=== PATIENT | female | born 1945 | race Caucasian/White ===

== ENCOUNTER 2017-05-03 13:07 | Emergency (ER) | payer MEDICARE, OTHER ==
[~2017-05-03 13:07] MED LIST: ASPI325T PO; CHOL4POW PO; CLOP75 PO; COUM3TAB PO; COUM5TAB PO; EZET10 PO; LASI20TA PO; LEVO.1 PO; LIPI80TA16 PO; LORT5TAB PO; LOTR5CAP3 PO; METF-324 PO; NIAS10004 PO; PIOG45 PO; TOPR100T15 PO
[2017-05-03] MEDS ORDERED: AMIODARONE HCL 150 MG/3 ML VIAL IV ONE (13:08)
[2017-05-03] MEDS ORDERED: EPINEPHrine HCL (1:1000) 30 MG/30 ML VIAL IV ONE (13:08)
[2017-05-03] MEDS ORDERED: CALCIUM CHLORIDE 10% SOLN 1 GRAM/10 ML SYR IV ONE (13:08)
[2017-05-03] MEDS ORDERED: LIDOCAINE/D5W 2000 MG/500 ML 500 ML IV ONE (13:08)
[2017-05-03] MEDS ORDERED: LIDOCAINE HCL 2% 100 MG/5 ML SYRINGE IV PUSH ONE (13:08)
[2017-05-03] MEDS ORDERED: NOREPINEPHRINE 4 MG/4 ML AMP IV ONE (13:08)
[2017-05-03] MEDS ORDERED: SODIUM BICARBONATE 8.4% INJ 50 MEQ/50 ML SYR IV ONE (13:08)
[2017-05-03] MEDS ORDERED: EPINEPHrine HCL (1:10,000) 1 MG/10 ML SYRINGE IV ONE (13:08)
[2017-05-03 13:14] VITALS: BP 103/54; PULSE 65; RESP 15; O2SAT 98
[2017-05-03] MEDS ORDERED: HEPARIN SODIUM - IV 10,000 UNITS/10 ML VIAL IV STA (13:18)
[2017-05-03] MEDS ORDERED: SODIUM CHLOR 0.9% 1000 ML INJ 1,000 ML IV ONE (13:18)
[2017-05-03] MEDS ORDERED: ASPIRIN 81 MG CHEW TAB PO STA (13:18)
[2017-05-03] MEDS ORDERED: NITROGLYCERIN 0.4 MG SL 25 TABS/BTL SL STA (13:18)
[2017-05-03 13:24] VITALS: O2SAT 98
[2017-05-03] MEDS ORDERED: SODIUM CHLORIDE 0.9% FLUSH 10 ML FLUSH IVF PRN (13:30)
[2017-05-03] MEDS ORDERED: NITROGLYCERIN-D5W 50 MG/250 ML 250 ML IV PRN (13:30)
[2017-05-03] MEDS ORDERED: IOHEXOL 350 MG/ML 50 ML BTL (for Cath Lab) OTHER ONE (13:30)
--- NOTE | 2017-05-03 13:31 | PD ---
HPI Chief Complaint: Cardiac Complaint Time Seen by Provider: 13:16 Travel History International Travel<30 days: No Contact w/Intl Traveler<30days: No Traveled to known affect area: No History of Present Illness HPI This is a 71-year-old female who presents to the emergency Department with onset of back pain that started yesterday between her shoulder blades escalating today to the point where she's been vomiting and nauseous, severe, associated with some shortness of breath worse in the past several hours. The patient reports this feels just like when she's had myocardial infarction in the past. The patient has a history of one quadruple and 1 trouble bypass and has had a stent since then. She recently moved to the area and doesn't have a market analysis director here. EKGs with EMS for concerning so she was brought in as a cardiac alert. She was given aspirin and 2 nitroglycerin with EMS. PFSH Past Medical History High Cholesterol: Yes Diabetes: Yes Diminished Hearing: No Hypertension: Yes Myocardial Infarction: Yes Past Surgical History Cholecystectomy: Yes Coronary Stent: Yes Tonsillectomy: Yes Social History Alcohol Use: No Tobacco Use: No Substance Use: No Allergies-Medications (Allergen,Severity, Reaction): Coded Allergies: No Known Allergies (Verified , 05/03/17) Reported Meds & Prescriptions Reported Meds & Active Scripts Active Lortab 5/500 (Acetaminophen/Hydrocodone Bitart) 5 Mg/500 Mg Tab 1 Tab PO Q4HPRN FOR PAIN Reported Questran Light (Cholestyramine Resin) 4 Gm Pow 4 Gm PO DAILY Glucophage (Metformin HCl) 1,000 Mg Tab 1,000 Mg PO BID Aspirin 325 Mg Tab 325 Mg PO DAILY Zetia (Ezetimibe) 10 Mg Tab 10 Mg PO DAILY Lotrel 5/20 (Amlodipine Besylate-Benazepril 5MG/20MG) 5 - Cap 1 Cap PO DAILY Lasix (Furosemide) 20 Mg Tab 20 Mg PO DAILY Plavix (Clopidogrel Bisulfate) 75 Mg Tab 75 Mg PO DAILY Niaspan Er (Niacin) 1,000 Er Tab 1,000 Mg PO DAILY Actos (Pioglitazone HCl) 45 Mg Tab 45 Mg PO DAILY Lipitor (Atorvastatin Calcium) 80 Mg Tab 80 Mg PO DAILY Toprol Xl (Metoprolol Succinate) 100 Mg Tab 100 Mg PO DAILY Coumadin (Warfarin Sodium) 5 Mg Tab 5 Mg PO DAILY Coumadin (Warfarin Sodium) 3 Mg Tab 3 Mg PO DAILY Synthroid (Levothyroxine Sodium) 100 Mcg Tab 100 Mcg PO DAILY Review of Systems Except as stated in HPI: all other systems reviewed are Neg Physical Exam Narrative GENERAL:Pale, uncomfortable appearing SKIN: Focused skin assessment warm and dry. HEAD: Atraumatic. Normocephalic. EYES: Pupils equal and round. No injection or drainage. ENT: Moist mucous membranes NECK: Trachea midline. CARDIOVASCULAR: Regular rate and rhythm. No murmur appreciated. RESPIRATORY: Clear to auscultation. Breath sounds equal bilaterally. GASTROINTESTINAL: Abdomen soft, non-tender, nondistended. MUSCULOSKELETAL: No obvious deformities. NEUROLOGICAL: Awake and alert. No obvious cranial nerve deficits. Moving all extremities. PSYCHIATRIC: Appropriate mood and affect; insight and judgment normal. Data Data Last Documented VS Vital Signs Date Time Temp Pulse Resp B/P (MAP) Pulse Ox O2 Delivery O2 Flow Rate FiO2 05/03/17 13:24 98 4.00 05/03/17 13:24 Nasal Cannula 05/03/17 13:23 (70) 05/03/17 13:14 65 15 Orders Orders Troponin I (05/03/17 13:18) Ckmb (Isoenzyme) Profile (05/03/17 13:18) Complete Blood Count With Diff (05/03/17 13:18) I-Stat Profile (05/03/17 13:18) I-Stat Creatinine (05/03/17 13:18) Calcium (05/03/17 13:18) Magnesium (Mg) (05/03/17 13:18) Prothrombin Time / Inr (Pt) (05/03/17 13:18) Act Partial Throm Time (Ptt) (05/03/17 13:18) B-Type Natriuretic Peptide (05/03/17 13:18) Chest, Single Ap (05/03/17 13:18) Electrocardiogram (05/03/17 13:18) Oxygen Administration (05/03/17 13:18) Iv Access Insert/Monitor (05/03/17 13:18) Oximetry (05/03/17 13:18) Sodium Chlor 0.9% 1000 Ml Inj (Ns 1000 M (05/03/17 13:18) Sodium Chloride 0.9% Flush (Ns Flush) (05/03/17 13:30) Aspirin Chew (Aspirin Chew) (05/03/17 13:18) Nitroglycerin Sl (Nitrostat Sl) (05/03/17 13:18) Nitroglycerin-D5w 50 Mg/250 Ml (Nitrogly (05/03/17 13:30) Heparin Inj (Heparin Inj) (05/03/17 13:18) Admit Order (Ed Use Only) (05/03/17 13:21) Cardiac Catheterization (05/03/17 ) MDM Medical Decision Making Medical Screen Exam Complete: Yes Emergency Medical Condition: Yes Interpretation(s) No tachycardia, normotensive EKG: Normal sinus rhythm, ST elevation greater than 1 mm in lead 3, at 1 mm in aVF, ST depressions in 1 and aVL as well as V5 and V6 Differential Diagnosis STEMI, nSTEMI, unstable angina, pulmonary embolism, aortic dissection Narrative Course This is a 71-year-old female who has a history of extensive coronary artery disease who presents to the emergency department with back pain that is typical of her myocardial infarctions in the past. EKG demonstrates [address] elevation in leads 3 and aVF with reciprocal changes concerning for an inferior myocardial infarction. She does have Q waves in those leads of these may be old findings but we don't have an EKG to compare to. Patient has a very good story for myocardial infarction. STEMI was called and the patient was transferred to the [facility]. Critical Care Narrative Aggregate critical care time was 35 minutes. Time to perform other separately billable procedures was not included in the critical care time. My time did not include minutes spent treating any other patients simultaneously or on activities that did not directly contribute to the patient's treatment. The services I provided to this patient were to treat and/or prevent clinically significant deterioration that could result in: disability, I provided critical care services requiring my management, as noted below: Chart data review, documentation time, medication orders and management, vital sign assessments/reviewing monitor data, ordering and reviewing lab tests, ordering and interpreting/reviewing x-rays and diagnostic studies, care of the patient and discussion of the patient with the admitting physicians. Physician Communication Physician Communication Discussed with Dr. Kearns Diagnosis Primary Impression: STEMI (ST elevation myocardial infarction) Qualified Codes: I21.3 - ST elevation (STEMI) myocardial infarction of unspecified site Admitting Information Admitting Physician Requests: Lorin David MD May 03, 2017 13:31
--- NOTE | 2017-05-03 13:37 | RADRPT ---
EXAM DATE/TIME: 05/03/2017 13:19 [facility] COMPARISON: No previous studies available for comparison. INDICATIONS : Stemi Alert. MEDICAL HISTORY : Hypertension. Diabetes mellitus type II. SURGICAL HISTORY : CABG. ENCOUNTER: Initial ACUITY: 1 day PAIN SCORE: 10/10 LOCATION: Bilateral chest FINDINGS: Underinflated AP view of the chest demonstrates a normal-sized cardiac silhouette with calcification of the aorta. Median sternotomy wires are present along with clips in the mediastinum. Lungs are unde rinflated with atelectasis at the lung bases. No effusion, consolidation, or pneumothorax is identifi ed. Bones demonstrate no acute finding. CONCLUSION: Underinflated examination with mild atelectasis at the lung bases. Otherwise, no acute finding is aimee ntified in this patient post CABG. Manas Terrazas MD on May 03, 2017 at 13:34 Board Certified Radiologist. This report was verified electronically.
[2017-05-03] MEDS ORDERED: MIDAZOLAM HCL 2 MG/2 ML VIAL ONE (13:45)
[2017-05-03 13:49] LABS: I-STAT POTASSIUM 6.1 MMOL/L (3.5-4.9)
[2017-05-03 13:50] LABS: AUTOMATED NEUTROPHIL # 13.2 TH/MM3 (1.8-7.7); BASOPHIL % 0.2 % (0.0-2.0); HEMATOCRIT 30.4 % (35.0-46.0); HEMO FLAGS DIFF FINAL; LYMPH % 7.6 % (9.0-44.0); LYMPHOCYTE # 1.1 TH/MM3 (1.0-4.8); MEAN CELL VOLUME 85.4 FL (80.0-100.0); MEAN CORPUSCULAR HEMOGLOBIN 26.4 PG (27.0-34.0); MEAN CORPUSCULAR HGB CONC 30.9 % (32.0-36.0); MONO % 4.3 % (0.0-8.0); NEUT % 87.9 % (16.0-70.0); PLATELET COUNT 101 TH/MM3 (150-450); RED BLOOD COUNT 3.56 MIL/MM3 (4.00-5.30); RED CELL DISTRIBUTION WIDTH 18.2 % (11.6-17.2)
[2017-05-03] MEDS ORDERED: NALOXONE HCL 0.4 MG/ML AMP ONE (13:58)
[2017-05-03 14:01] LABS: APTT (PATIENT) 35.7 SEC (24.3-30.1); INTERNATIONAL NORMALIZED RATIO 2.6 RATIO; PROTHROMBIN TIME - PATIENT 30.5 SEC (9.8-11.6)
[2017-05-03 14:11] LABS: MAGNESIUM 2.5 MG/DL (1.5-2.5)
[2017-05-03 14:40] VITALS: O2SAT 90
--- NOTE | 2017-05-03 15:01 | CATHPROC ---
Patient Name: BART DILLON Study #: [id number] Initial MD: Anabell Morales Date of : 1945 Study Date: 05/03/2017 Cardiac Catheterization Report 05/04/2017 11:03:13 AM Financial #: [id number] 1 of 10 Patient Name: BART DILLON Study #: [id number] Initial MD: Anabell Morales Date of : 1945 Study Date: 05/03/2017 Entire Case Report Patient Information Patient Name BART DILLON Date of 1945 Age 71 years Financial # [id number] Gender F AlternateID Lab Number 4 Room Number Height (in) 66.0 Height (cm) 167.6 BSA 1.74 Weight (lbs) 143.0 Weight (kg) 65.0 Patient Address/Phone Number Home Address [facility] Home Phone Number [address] [place] [address] Study Information Study Number Admission Scheduled Start Study Start [id number] May 03 2017 1:07PM 05/03/2017 May 03 2017 1:26PM [place] Service Cardiac Catheterization Admit Source Facility Department Emergency department [facility] Physician and Clinical Staff Initial Anabell Rapp Hypercil Core Transformer Assembler Otf Hopkins,RN Hypercil Core Transformer Assembler Shadia Mccormack BSRN Other cathlab, cathlab Other Anesthesia, HYDRATOR Other Nara Clark,SHAI Recorder Bart Sanchez,MARKETING TEAM LEAD TECH2 Scrub Humberto Boudreaux RCIS(BS) Procedures Performed Procedure Location (Site) Vessel Name Coronary Angiograms RCA Right Coronary Coronary Angiograms SVG-RCA Right Coronary Coronary Angiograms Gft. Stump 1 SVG Graft Pacemaker Temp Fem Vein (right) Femoral Vein 05/04/2017 11:03:13 AM Financial #: [id number] 2 of 10 Patient Name: BART DILLON Study #: [id number] Initial MD: Anabell Morales Date of : 1945 Study Date: 05/03/2017 Equipment Time Radio Tower Technician Description Size Mfg Part Number Used/Scraped [id number] 15:04 LAROSE HURTADO PACING CATHETER J CURVE FR 5 Used *[id number] TRANSDUCER, TRUWAVE [id number] 13:43 LAROSE HURTADO * Used W/STOCKCOCK *[id number] 534-548T *[id number] 534-520T *[id number] 534-521T *[id number] 13:43 MEDLINE INDUSTRIES PACK, CCL CUSTOM * Used *[id number] 13:43 MEDLINE PACER PEN, SKIN DUAL W/ RULER * Used *[id number] 14:21 Crowdmark MEDICAL SHEATH, FR6.5 PRELUDE 11CM FR 6.5 038ACT Used *6948009 [id number] 13:43 [employer] MEDICAL WIRE, 3MMJ .035 180CM 180CM Used *[id number] PROBE COVER, STERILE [id number] 13:43 [employer]ient MEDICAL * Used ULTRASOUND W/ GEL *[id number] 13:43 NAMIC MANIFOLD, 4 PORT * Used *[id number] [id number] 13:43 NAMIC TUBING, HIGH PRESSURE 48" 48" Used *[id number] 13:43 NYCOMED OMNIPAQUE, 350 MG, 150ML 150ML [id number] Used [id number] 13:43 AVILES MEDICAL BLANKET,WARM AIR CCL * Used *[id number] [id number] 13:43 TERUMO MEDICAL SHEATH, FR5 TERUMO (10CM) FR 5 Used *[id number] Insurance Information Insurance Payor Medicare Third Republican Third Republican Number MEDICARE A B MCRAB History: Current Medications Medication Dosage/Unit Route Frequency Last Date/Time Taken Synthroid LISINOPRIL CARVEDILOL Statins (any) Glypizide Coumadin 05/04/2017 11:03:13 AM Financial #: [id number] Patient Name: BART DILLON Study #: [id number] Initial MD: Anabell Morales Date of : 1945 Study Date: 05/03/2017 History: Stress Tests Stress or Imaging Studies Performed No Labs Hgb (g/dl) Hct (%) RBC (MIL/MM3) WBC (l/cumm) Platelets (thousands) 11.60-17.00 35.00-51.00 4.00-5.90 4.00-11.00 150.00-450.00 10.5 31 3.5 15 101 Glucose (mg/dl) Creatinine (mg/dl) 74.00-106.00 0.50-1.30 292 2.6 Na (meq/l) K (meq/l) Cl (meq/l) 136.00-145.00 3.50-5.10 98.00-107.00 137 6.1 105 Medication Medication Total Dose (Bolus/Oral) Medication Total Dosage/Unit 1% XYLOCAINE 20 mL AMIODARONE 300 mg CALCIUM CHLORIDE 1 g EPINEPHRINE 08/999 3 mg FENTANYL 50 mcg NARCAN 0.4 mg OXYGEN 2 l/min ROMAZICON IV 0.2 mg VERSED 2 mg 05/04/2017 11:03:13 AM Financial #: [id number] Patient Name: BART DILLON Study #: [id number] Initial MD: Anabell Morales Date of : 1945 Study Date: 017 Medications (Bolus/Oral) Medication Time Given Dosage/Unit Administered By Reason OXYGEN 05/03/2017 1:41:15 PM 2 l/min cathlab, cathlab Patient arrived on 2 l/min OXYGEN given by cathlab, cathlab via Nasal. Ordered by Anabell Morales. VERSED 05/03/2017 1:51:31 PM 1 mg Otf Hopkins 1 mg VERSED given in lab by Otf Hopkins RN in Right Hand via Peripheral IV. Ordered by Ebonie Morales. FENTANYL 05/03/2017 1:52:42 PM 25 mcg Otf Hopkins 25 mcg FENTANYL given in lab by Otf Hopkins RN in Right Hand via Peripheral IV. Ordered by Anabell Howell. 1% XYLOCAINE 05/03/2017 1:52:52 PM 20 mL Anabell Morales 20 mL 1% XYLOCAINE given in lab by Anabell Morales in Right Groin via Subcutaneous. Ordered by Anabell Howell. VERSED 05/03/2017 1:54:04 PM 1 mg Otf Hopkins 1 mg VERSED given in lab by Otf Hopkins RN in Right Hand via Peripheral IV. Ordered by Ebonie Morales. FENTANYL 05/03/2017 1:55:43 PM 25 mcg Gerrytendl, Shadia 25 mcg FENTANYL given in lab by Shadia Mccormack BSRN via Peripheral IV. Ordered by Anabell Morales. NARCAN 05/03/2017 1:59:18 PM 0.4 mg Rittendl, Shadia 0.4 mg NARCAN given in lab by Shadia Mccormack BSRN via Peripheral IV. Ordered by Anabell Morales. ROMAZICON IV 05/03/2017 1:59:34 PM 0.2 mg Rittendl, Shadia 0.2 mg ROMAZICON IV given in lab by Shadia Mccormack BSRN via Peripheral IV. Ordered by Aranza Morales. EPINEPHRINE 08/999 05/03/2017 2:04:06 PM 1 mg Otf Hopkins 1 mg EPINEPHRINE 08/999 given in lab by Otf Hopkins RN in Right Hand via Peripheral IV. Ordered b y Anabell Morales. EPINEPHRINE 08/999 05/03/2017 2:06:52 PM 1 mg Otf Hopkins 1 mg EPINEPHRINE 08/999 given in lab by Otf Hopkins RN in Right Hand via Peripheral IV. Ordered b y Anabell Morales. EPINEPHRINE 08/999 05/03/2017 2:18:31 PM 1 mg Otf Hopkins 1 mg EPINEPHRINE 08/999 given in lab by Otf Hopkins RN in Right Hand via Peripheral IV. Ordered b y Anabell Morales. AMIODARONE 05/03/2017 2:22:02 PM 300 mg Otf Hopkins 300 mg AMIODARONE given in lab by Otf Hopkins RN in Right Hand via Peripheral IV. Ordered by Anabell Chau. CALCIUM CHLORIDE 05/03/2017 2:23:02 PM 1 g Otf Hopkins 1 g CALCIUM CHLORIDE given in lab by Otf Hopkins RN via Peripheral IV. Ordered by Anabell Morales . 05/04/2017 11:03:13 AM Financial #: [id number] 5 of 10 Patient Name: BART DILLON Study #: [id number] Initial MD: Anabell Morales Date of : 1945 Study Date: 2016 Medication (Drip) Medication Time Given Dosage/Unit Concentration/Unit Diluent (ml) Solution EPINEPHRINE DRIP 05/03/2017 2:25:39 PM 10 mcg/min 4 mg 250 NaCl .9 10 mcg/min EPINEPHRINE DRIP given in lab by Anesthesia, HYDRATOR in Right Groin via Peripheral IV. Pump/D rip Flow = 37.5 ml/hr using NaCl .9 with a concentration of 4 mg in 250 ml. Ordered by Anabell Morales. IV Solutions 05/03/2017 1:41:47 PM 0 mL (IV) 500 NaCl .9 IV Solutions given in lab by Otf Hopkins RN in Right Hand via Peripheral IV. Pump/Drip Flow = 20 ml/hr using NaCl .9. Ordered by Anabell Morales. SODIUM BICARBONATE 05/03/2017 2:00:54 PM 50 meq 50 meq SODIUM BICARBONATE given in lab by Anesthesia, HYDRATOR in Right Hand via Peripheral IV. Ordered b y Anabell Morales. SODIUM BICARBONATE 05/03/2017 2:23:21 PM 50 meq 50 meq SODIUM BICARBONATE given in lab by Otf Hopkins RN in Right Hand via Peripheral IV. Ordered by Anabell Morales. Initial Case Assessment Cardiovascular HR NIBP 65 111/59 Edema Present Skin color Skin None Normal Warm Dry Circulatory - Right Pulses Dorsalis Pedis Femoral d 1 Scale (0,1,2,3,4,d) Circulatory - Left Pulses Dorsalis Pedis Femoral 1 Scale (0,1,2,3,4,d) Neurological State Oriented to time-place- Alert Moves all extremities person Respiration - General Respiration Rate SpO2 (%) O2 (lpm) (B/min) 11 99 2 05/04/2017 11:03:13 AM Financial #: [id number] Patient Name: BART DILLON Study #: [id number] Initial MD: Anabell Morales Date of : 1945 Study Date: 7 Vitals Summary Pain Time HR NIBP SpO2 Resp Temp EtCO2 Apnea Praneeth Tadeo Comment Level 13:37:23 61 111/59 99.0 11 10 0 2 13:42:14 61 120/64 98.0 17 10 0 2 13:47:15 111 122/65 99.0 15 10 0 2 13:52:16 66 121/67 100.0 32 14:01:25 87 133/30 100.0 10 0 2 14:03:44 99 114/88 92.0 10 0 2 14:06:01 101 97/77 84.0 10 0 2 Praneeth Score Summary Time Activity Resp Circ LOC Color Total Score 13:37:23 2 2 2 2 2 10 13:42:14 2 2 2 2 2 10 13:47:15 2 2 2 2 2 10 14:01:25 2 2 2 2 2 10 14:03:44 2 2 2 2 2 10 14:06:01 2 2 2 2 2 10 Praneeth Score Definition Table Activity - 0 Activity - 1 Activity - 2 No Movement to Command Weak Hand Grasp Lift Head, Good Hand Grasp Respiration - 0 Respiration - 1 Respiration - 2 Apneic or Obstructed Shallow Breath, Airway Adjunct Deep Breath, Cough Freely Circulation - 0 Circulation - 1 Circulation - 2 B/P > 50% Admission B/P B/P > 20-50% Admission B/P B/P Stable X3 Level of Consciousness - 0 Level of Consciousness - 1 Level of Consciousness - 2 Not Responding Arousable On Calling Awake and Aware Color - 0 Color- 1 Color - 2 Cyanotic Lips, Nailbed, Skin Pale, Dusky [place] Or Normal Chronological Log Time Study Chronological Log 13:26:19 Emergency Room notified that [facility] is ready. 13:30:43 Patient arrived via Bed. 13:30:44 Patient Name, D.O.B, / Armband Verified By R.N. Vitals capture started with the following parameters, Patient=Adult, Interval=5 min, Initial Wjzvwhkb=015 mmHg, 13:36:39 Deflation Rate=5 mmHg, Cuff placed on Right Arm 13:37:23 HR=61 bpm, TOCZ=419/59 mmhg, SpO2=99.0 %, Resp=11 B/min, Pain=0, Praneeth=10, Tadeo=2 05/04/2017 11:03:13 AM Financial #: [id number] Patient Name: BART DILLON Study #: [id number] Initial MD: Anabell Morales Date of : 1945 Study Date: 05/03/2017 13:41:03 Patient has been NPO for More than 6Hrs. 13:41:06 Skin Breakdown- 13:41:07 Patient Warmer Placed on the Table. 13:41:08 Disposable Defibrillator Pads Placed On Patient. 13:41:09 Deja Prominences Protected 13:41:12 A # 20 IV was noted in the Hand (right). Grade = 0 13:41:15 Patient arrived on 2 l/min OXYGEN given by cathlab, cathlab via Nasal. Ordered by Anabell Morales. 13:41:16 History and physical on the chart or being dictated. Assessment: Initial Case, HR=65 BPM, FMXP=283/59 mmhg, Edema=None, Color=Normal, Skin = Warm, D ry Right Pulses: [place] Ped=d, Femoral=1 13:41:17 Left Pulses: [place] Ped=1 Neurological: State=Alert, Ox3, FISHER Respiration: Resp=11 B/min, SpO2=99 %, O2=2 lpm IV Solutions given in lab by Otf Hopkins, SHAI in Right Hand via Peripheral IV. Pump/Drip Flow = 20 ml/hr using NaCl .9. 13:41:47 Ordered by Anabell Morales. 13:42:14 HR=61 bpm, TNAE=405/64 mmhg, SpO2=98.0 %, Resp=17 B/min, Pain=0, Praneeth=10, Tadeo=2 13:47:15 KT=090 bpm, PUYF=368/65 mmhg, SpO2=99.0 %, Resp=15 B/min, Pain=0, Praneeth=10, Tadeo=2 13:50:17 Left groin prepped with 2% chlorhexidine, and with a 3 min. waiting time. 13:51:10 Pressure channel 1 zeroed. 13:51:31 1 mg VERSED given in lab by Otf Hopkins, RN in Right Hand via Peripheral IV. Ordered by Anabell Morales. 13:52:16 HR=66 bpm, HXTT=573/67 mmhg, RtU5=613.0 %, Resp=32 B/min 13:52:42 25 mcg FENTANYL given in lab by Otf Hopkins, SHAI in Right Hand via Peripheral IV. Ordered by Anabell Morales. Time Out. Correct patient, correct procedure,correct physician, power injector loaded with cont rast with surgical team 13:52:49 present. Time Out Concurred by MD, individual staff in procedure 13:52:51 Case Start 13:52:52 20 mL 1% XYLOCAINE given in lab by Anabell Morales in Right Groin via Subcutaneous. Ordered by Anabell Morales. 13:54:04 1 mg VERSED given in lab by Otf Hopkins, SHAI in Right Hand via Peripheral IV. Ordered by Anabell Morales. 13:55:43 25 mcg FENTANYL given in lab by Shadia Mccormack BSRN via Peripheral IV. Ordered by Anabell Howell. 13:56:50 CPR started 13:57:51 NIBP STAT measurement started. 13:58:49 Vitals capture stopped. 13:59:06 NIBP STAT measurement started. 13:59:18 0.4 mg NARCAN given in lab by Shadia Mccormack BSRN via Peripheral IV. Ordered by Anabell Morales. 13:59:34 0.2 mg ROMAZICON IV given in lab by Shadia Mccormack BSRN via Peripheral IV. Ordered by Anabell Arceo. 13:59:56 Oral Intubation Performed 14:00:40 Vitals capture stopped. 14:00:41 NIBP STAT measurement started. 50 meq SODIUM BICARBONATE given in lab by DENIZ Acosta in Right Hand via Peripheral IV. Ord ered by Som 14:00:54 Anabell. 14:01:25 HR=87 bpm, NAVS=135/30 mmhg, BiR4=977 %, Pain=0, Praneeth=10, Tadeo=2 Vitals capture started with the following parameters, Patient=Adult, Interval=5 min, Initial Pr jzoldr=985 mmHg, 14:03:09 Deflation Rate=5 mmHg, Cuff placed on Right Arm 05/04/2017 11:03:13 AM Financial #: [id number] Patient Name: BART DILLON Study #: [id number] Initial MD: Anabell Morales Date of : 1945 Study Date: 05/03/2017 14:03:11 NIBP STAT measurement started. 14:03:44 HR=99 bpm, KPKE=292/88 mmhg, SpO2=92.0 %, Pain=0, Praneeth=10, Tadeo=2 14:03:51 NIBP STAT measurement started. 14:04:04 Vitals capture stopped. 1 mg EPINEPHRINE 08/999 given in lab by Otf Hopkins, RN in Right Hand via Peripheral IV. Ord ered by Som, 14:04:06 Anabell. Vitals capture started with the following parameters, Patient=Adult, Interval=2 min, Initial Pr exyrnz=281 mmHg, 14:04:26 Deflation Rate=5 mmHg, Cuff placed on Right Arm 14:05:41 NIBP STAT measurement started. 14:06:01 RA=828 bpm, NIBP=97/77 mmhg, SpO2=84.0 %, Pain=0, Praneeth=10, Tadeo=2 1 mg EPINEPHRINE 08/999 given in lab by Otf Hopkins, SHAI in Right Hand via Peripheral IV. Ord ered by Som, 14:06:52 Anabell. 14:07:50 CPR continues 14:08:42 Access site was Right Femoral Vein. 14:08:49 A SHEATH, FR6.5 PRELUDE 11CM FR 6.5 was advanced into the Fem Art (right) using the Sones c utdown technique. A PACING CATHETER J CURVE FR 5 was advanced to the right ventricle. Rate = ~RATE~, Output = ~OU TPUT~, MA = 14:10:22 ~MA~. 14:11:28 Temporary pacing catheter sutured in place 14:12:19 NIBP STAT measurement started. 14:16:21 Access site was Left Femoral Artery. 14:16:30 A SHEATH, FR5 TERUMO (10CM) FR 5 was advanced into the Fem Art (right) using the Modified Yossi leyvadinger technique. 14:17:00 Ventricular Fibrillation noted. 14:17:15 Patient defibrillated at 200 joules. The ECG rhythm was noted as V-Fib. A AR MOD INFINITI CATHETER FR 5 was advanced over a wire. OMNIPAQUE, 350 MG, 150ML 150ML was us ed for 14:17:19 injections. 14:17:19 Recorded Pressure: HR=98, Condition=Condition 1 14:17:22 Patient defibrillated at 300 joules. The ECG rhythm was noted as V-Fib. 14:17:29 The RCA was injected and visualized at various angles. OMNIPAQUE, 350 MG, 150ML 150ML used . 14:17:30 Recorded Pressure: HR=53, Condition=Condition 1 14:17:34 Recorded Pressure: HR=19, Condition=Condition 1 14:17:44 Recorded Pressure: CO=255, Condition=Condition 1 14:18:21 Patient defibrillated at 360 joules. The ECG rhythm was noted as V-Fib. 14:18:27 The Gft. Stump 1 was injected and visualized at various angles. OMNIPAQUE, 350 MG, 150ML 15 0ML used. 1 mg EPINEPHRINE 08/999 given in lab by Otf Hopkins, SHAI in Right Hand via Peripheral IV. Ord ered by Som, 14:18:31 Anabell. 14:18:40 The SVG-RCA was injected and visualized at various angles. OMNIPAQUE, 350 MG, 150ML 150ML u sed. Vitals capture started with the following parameters, Patient=Adult, Interval=5 min, Initial Pr zyhgep=950 mmHg, 14:19:11 Deflation Rate=5 mmHg, Cuff placed on Right Arm 14:21:17 Vitals capture stopped. 14:21:30 Patient defibrillated at 360 joules. The ECG rhythm was noted as V-Fib. 14:21:33 Recorded Pressure: QP=938, Condition=Condition 1 14:22:02 300 mg AMIODARONE given in lab by Otf Hopkins, SHAI in Right Hand via Peripheral IV. Order ed by Anabell Moralse. 05/04/2017 11:03:13 AM Financial #: [id number] Patient Name: BART DILLON Study #: [id number] Initial MD: Anabell Morales Date of : 1945 Study Date: 05/03/2017 Vitals capture started with the following parameters, Patient=Adult, Interval=5 min, Initial Iuzvhipd=084 mmHg, 14::37 Deflation Rate=5 mmHg, Cuff placed on Right Arm 14:22:37 Vitals capture stopped. Vitals capture started with the following parameters, Patient=Adult, Interval=5 min, Initial Kuvgitui=542 mmHg, 14:22:46 Deflation Rate=5 mmHg, Cuff placed on Right Arm 14:23:02 1 g CALCIUM CHLORIDE given in lab by Otf Hopkins, RN via Peripheral IV. Ordered by Anabell Ennis. 50 meq SODIUM BICARBONATE given in lab by Otf Hopkins, RN in Right Hand via Peripheral IV. Ordered by Som 14:23:21 Anabell. 10 mcg/min EPINEPHRINE DRIP given in lab by DENIZ Acosta in Right Groin via Peripheral IV . Pump/Drip Flow = 14:25:39 37.5 ml/hr using NaCl .9 with a concentration of 4 mg in 250 ml. Ordered by Anabell Morales. 14:26:38 Patient defibrillated at 360 joules. The ECG rhythm was noted as V-Fib. A JL 4.0 INFINITI CATHETER FR 5 was advanced over a wire. OMNIPAQUE, 350 MG, 150ML 150ML was used for 14:27:53 injections. 14:31:43 Catheter was removed 14:33:08 CPR stopped 14:33:36 CODE ENDED, PRONOUNCED BY DR MORALES 14:35:06 Vitals capture stopped. Vitals capture started with the following parameters, Patient=Adult, Interval=5 min, Initial Ndzlxzvu=489 mmHg, 14:35:14 Deflation Rate=5 mmHg, Cuff placed on Right Arm 14:37:11 Vitals capture stopped. 11:02:03 Clinical correlaton risk stratification. End Study - Contrast Media Used In Study Contrast Total Opened (mL) Total Used (mL) Total Wasted (mL) Omnipaque 20 20 0 End Study - Maximum Contrast Load Max Contrast Load (mL) 125.0 End Study - Radiation Exposure Fluoro Time (minutes) 3.5 End Study - Patient Disposition Complications Not selected 05/04/2017 11:03:13 AM Financial #: [id number]
[2017-05-03] MEDS ORDERED: FLUMAZENIL 1 MG/10 ML VIAL ONE (15:54)
--- NOTE | 2017-05-03 19:34 | MB ---
cc: MAYANK MORALES DATE OF CONSULTATION 05/03/2017 HISTORY Ms. Wilcox is a 71-year-old female with a history of severe coronary artery disease, redo coronary bypass, diabetes, myocardial infarction, hypertension, and coronary stenting. She developed severe back pain yesterday which was between her shoulder blades associated with nausea, vomiting. Shortness of breath this morning. This was similar to her previous myocardial infarction. She has history of quadruple and also double bypass and stenting. She recently moved to the area. Her EKG was consistent with acute myocardial infarction and she was referred for further evaluation and emergent cardiac catheterization. PAST MEDICAL HISTORY Positive for: 1. Coronary artery bypass quadruple and double. 2. History of dyslipidemia. 3. Diabetes mellitus. 4. Hypertension. 5. Myocardial infarction. 6. History of coronary stenting. 7. Tonsillectomy. 8. Cholecystectomy. 9. Severe peripheral vascular disease and status post right below-knee amputation. MEDICATIONS Include: 1. Synthroid. 2. Coumadin. 3. Toprol XL. 4. Lipitor. 5. Actos. 6. Niaspan ER. 7. Plavix. 8. Lasix. 9. Lotrel. 10. Zetia. 11. Aspirin. 12. Glucophage. 13. Questran. 14. Lortab. ALLERGIES None. SOCIAL HISTORY The patient does not smoke. She does not drink alcohol. She recently moved to the area. She has a sister and also her goddaughter here. Family in town. FAMILY HISTORY Unknown at this time. REVIEW OF SYSTEMS Otherwise negative. PHYSICAL EXAMINATION VITAL SIGNS: Blood pressure 103/64, pulse 90 and regular. HEENT: Negative. NECK: 2+ carotid upstrokes. No bruits. LUNGS: Clear. HEART: Regular with no murmur, gallop. ABDOMEN: Soft. No bruits. EXTREMITIES: Without edema. Diminished distal pulses. There is status post right BKA. NEUROLOGIC: Examination is grossly nonfocal. EKG was reviewed and showed normal sinus rhythm, anteroseptal Q-waves, anteroseptal and inferior ST elevations with high lateral and inferolateral ST depressions. LABORATORY DATA Hemoglobin 10.5. Potassium 6.1, creatinine 2.6, magnesium 2.5. Troponin 0.36. BNP 1034. CK 91. DIAGNOSES 1. Acute ST-elevation myocardial infarction. 2. Coronary artery disease with a history of redo coronary bypass. 3. History of myocardial infarction. 4. Peripheral vascular disease. 5. Status post right below-knee amputation. 6. Diabetes mellitus. 7. Hypertension. 8. Dyslipidemia. DISPOSITION Ms. Wilcox will undergo emergent cardiac catheterization and coronary intervention if necessary. She understands the risks, benefits and wishes to proceed. MD JOSUE Blake/KATERINA /2:49 PM /7:15 PM MARISSA
--- NOTE | 2017-05-04 21:52 | EKG ---
Date Performed: 05/03/2017 Time Performed: 13:17:55 PTAGE: 71 years EKG: Sinus rhythm WITH SINUS ARRHYTHMIA INTRAVENTRICULAR CONDUCTION DELAY INFERIOR MYOCARDIAL INFARCTION-AGE UNDETERMI DANIEL CONSIDER ANTEROSEPTAL ISCHEMIA ABNORMAL ECG NO PREVIOUS TRACING DOCTOR: Rj Valentin Interpretating Date/Time 05/04/2017 21:50:47
--- NOTE | 2017-05-04 23:52 | MA ---
cc: MAYANK MORALES DATE: 05/03/[address] elevation myocardial function, coronary artery disease, coronary artery bypass, history of redo coronary bypass, peripheral vascular disease. PROCEDURE PERFORMED 1. Coronary angiography. 2. Saphenous venous graft angiography. 3. ACLS protocol (resuscitation). 4. Temporary pacemaker placement. ACCESS SITE. Left femoral artery. Right femoral vein. EQUIPMENT USED 5 [place] JL4 and AR1 coronary artery catheters. RESULTS CORONARY ANGIOGRAPHY Left main coronary is totally occluded. Right coronary has moderate diffuse disease. This is a moderate size vessel. Saphenous venous graft likely through the distal right coronary artery, totally occluded, second saphenous graft is totally occluded as well. DESCRIPTION OF PROCEDURE The patient developed severe bradycardia with severe hypotension at the beginning of the procedure. CPR was initiated. She subsequently had ventricular fibrillation/ventricular tachycardia. ACL protocol was initiated with multiple shocks. The patient was intubated by anesthesia. Pressors were started, but there was progressive decline despite multiple pressors. The patient remained severely hypotensive with multiple episodes of ventricular fibrillation. CPR was continued. Transcutaneous pacemaker was initially used and temporary pacemaker subsequently use which was functioning normally. The patient's condition progressively deteriorated and she was pronounced at 14:[address]-elevation myocardial infarction. 2. Severe coronary artery disease. 3. Cardiogenic shock. 4. Cardiac arrest. MD JOSUE Blake/DEWAYNE /2:57 PM /10:50 PM
--- NOTE | 2017-05-10 15:10 | MD ---
cc: MAYANK MORALES ADMISSION DATE: 05/03/2017 DISCHARGE DATE: 05/03/2017 SUMMARY Ms. Wilcox was a 71-year-old white female with history of severe coronary disease, redo coronary artery bypass, diabetes mellitus, myocardial function. She developed severe back pain on 05/02 one day prior to admission which was between her shoulder blades associated with nausea and vomiting. The patient was also short of breath. She presented on 05/03 and was found to have acute ST elevation myocardial infarction. She was emergently brought to the cardiac catheterization laboratory. At the beginning of the procedure, the patient developed severe bradycardia followed by ventricular fibrillation. She had severe hypotension and pressors were initiated. Multiple shocks were delivered to convert her back to sinus rhythm. Cardiac catheterization showed severe coronary artery disease with occlusion of multiple grafts. The patient progressively deteriorated and was pronounced on 05/03/2017 at 1433 p.m. DIAGNOSIS 1. Ventricular fibrillation, arrest. 2. Cardiogenic shock 3. ST elevation myocardial function. 4. Severe multivessel coronary disease, history of redo coronary bypass. MD JOSUE Blake/VIRGIL /5:54 PM /3:07 PM
== END 2017-05-03 14:33 | disposition expired ==
LOC: NEPE 13:07 → NEDA 13:23 → UNDOADMIN 13:23 → HDIC 13:43 → NEDA 13:43 → UNDODISIN 14:33 → HDIC 14:33 → NEPE 14:33
DX: I21.3 ST elevation (STEMI) myocardial infarction of unspecified site (principal); I46.2 Cardiac arrest due to underlying cardiac condition; Z79.899 Other long term (current) drug therapy
CPT/HCPCS: 31500; 33210; 71010; 82310; 82435; 82550; 82565; 82947; 83735; 83880; 84132; 84295; 84484; 84520; 85025; 85610; 85730; 92950; 93005; 93454; 94002; 99291; C1769; C1893; J0171; J0282; J2001; J2250; J2310; J3010; Q9967